=== PATIENT | female | born 2000 | race African-American/Black ===

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

== ENCOUNTER 2024-10-08 01:49 | Emergency (ER) | payer SELFPAY ==
[~2024-10-08] VITALS: Ht 162.6 cm; Wt 70.0 kg
[~2024-10-08 01:49] MED LIST changes: -ACET-2178 PO; +TOPUD PO
[2024-10-08 03:03] VITALS: TEMP 36.8; O2SAT 99
[2024-10-08] MEDS ORDERED: AZIT250T12 MT (04:00)
[2024-10-08 04:14] VITALS: BP 115/78; PULSE 71; RESP 20; O2SAT 100
== END 2024-10-08 04:27 | disposition home or self-care (01) ==
LOC: ER 01:49
DX: J06.9 Acute upper respiratory infection, unspecified (principal); B97.89 Other viral agents as the cause of diseases classified elsewhere; Z79.899 Other long term (current) drug therapy
CPT/HCPCS: 71045; 99283